=== PATIENT | female | born 2000 | race Caucasian/White ===

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

== ENCOUNTER → 2018-04-07 | Outpatient (CLI) | payer OTHER ==
[2018-04-07 15:27] LABS: FREE T4 1.23 ng/dl (0.76-1.46); THYROID STIM HORMONE (HS) 2.59 uIU/ml (0.358-4.75); THYROXINE (T4) TOTAL 13.2 ug/dl (4.8-13.9)
== END | disposition home or self-care (01) ==
LOC: LAB 14:32
PROVIDERS: Student in an Organized Health Care Education/Training Program
DX: E06.3 Autoimmune thyroiditis (principal)

== ENCOUNTER → 2019-09-21 | Outpatient (CLI) | payer OTHER | END | disposition home or self-care (01) | LOC: LAB 15:48 → US 16:00 | DX: N93.9 Abnormal uterine and vaginal bleeding, unspecified (principal); N93.8 Other specified abnormal uterine and vaginal bleeding ==

== ENCOUNTER → 2020-03-04 | Outpatient (CLI) | payer OTHER ==
[2020-03-04 11:45] LABS: ALBUMIN 3.6 gm/dl (3.1-4.5); BUN 10 mg/dl (7-24); CHLORIDE 110 mmol/L (98-107); CREATININE 0.74 mg/dL (0.55-1.02); FREE T4 1.26 ng/dl (0.76-1.46); POTASSIUM 3.8 mmol/L (3.5-5.1); SODIUM 136 mmol/L (136-145)
== END | disposition home or self-care (01) ==
LOC: LAB 10:15
PROVIDERS: Internal Medicine Endocrinology, Diabetes & Metabolism
DX: E03.9 Hypothyroidism, unspecified (principal); E55.9 Vitamin D deficiency, unspecified

== ENCOUNTER → 2020-03-12 | Outpatient (CLI) | payer OTHER ==
[2020-03-12 15:23] LABS: HEMATOCRIT 41.3 % (37.0-47.0); MEAN CELL VOLUME 89.2 fl (81.0-99.0); MEAN CORPUSCULAR HGB 28.9 pg (27.0-31.0); MEAN CORPUSCULAR HGB CONC 32.4 g/dl (33.0-37.0); MEAN PLATELET VOLUME 8.6 fl (9.6-12.3); RED BLOOD COUNT 4.63 10*6/uL (4.10-5.10); RED CELL DISTRI WIDTH 12.5 % (0-14.5); WHITE BLOOD COUNT 6.8 10*3/uL (4.8-10.8)
[2020-03-12 15:53] LABS: ALBUMIN 3.7 gm/dl (3.1-4.5); ALKALINE PHOSPHATASE 47 U/L (45-117); BUN 8 mg/dl (7-24); CHLORIDE 108 mmol/L (98-107); CHOLESTEROL 155 mg/dL (<200); CREATININE 0.64 mg/dL (0.55-1.02); HDL CHOLESTEROL 57 mg/dl (40-60); LDL CHOLESTEROL 81 mg/dL (9-159); POTASSIUM 3.7 mmol/L (3.5-5.1); SGOT/AST 14 IU/L (3-35); SGPT/ALT 23 U/L (12-78); SODIUM 138 mmol/L (136-145); TOTAL PROTEIN 7.5 gm/dL (6.4-8.2); TRIGLYCERIDES 83 mg/dl (<150); VLDL CHOLESTEROL 17 mg/dL (6-40)
== END | disposition home or self-care (01) ==
LOC: LAB 14:41
PROVIDERS: Physician Assistant
DX: E03.9 Hypothyroidism, unspecified (principal)